=== PATIENT | male | born 1965 | race Caucasian/White ===

== ENCOUNTER 2016-11-14 20:40 | Inpatient (IN) | payer SELFPAY ==
[~2016-11-14] VITALS: Ht 172.7 cm; Wt 72.3 kg
[2016-11-14 20:40] VITALS: BP 149/76; PULSE 77; RESP 20; TEMP 97.1; O2SAT 97
--- NOTE | 2016-11-14 22:10 | NUR ---
Yaron brandt in ED - 11/14/16 at 2213 by [email or web address] Patient to bed 7 to [facility] for evaluation. Side rails up. Report given to LEAH Perales.
--- NOTE | 2016-11-14 22:37 | NUR ---
Patient to ER bed 5 to gown for evaluation. Side rails up. Report given to TASHA LYNN.
--- NOTE | 2016-11-14 22:45 | NUR ---
Pt brought in by friend in stable condition. Pt c/o epigastric pain x1 wk 03/15. +N/V. Pt stated he has had intermittent fever x1 wk. Pt stated he has been medicating w/ Nexium from a friend. Pt denies taking any pain medication at this time. -sob -chest pain. No acute distress noted at this time, will continue to monitor
[2016-11-14] MEDS ORDERED: MAG HYDROX/AL HYDROX/SIMETH 30 ML, BELLADONNA ALKALOIDS/PHENOBARB 10 ML, LIDOCAINE VISC... PO ONE ×3 (23:00)
--- NOTE | 2016-11-14 23:15 | NUR ---
ER at bedside examining patient.
[2016-11-14 23:26] LABS: BASOPHILS # (AUTO) 0.1 K/uL (0.0-0.2); BASOPHILS % (AUTO) 0.5 % (0.0-2.0); EOSINOPHILS # (AUTO) 0.1 K/uL (0.0-0.4); EOSINOPHILS % (AUTO) 0.5 % (0.0-4.0); HEMATOCRIT 49.8 % (36-54); HEMOGLOBIN 16.4 g/dL (14.0-18.0); LYMPHOCYTES # (AUTO) 2.7 K/uL (1.0-5.5); LYMPHOCYTES % (AUTO) 18.6 % (20.5-51.5); MEAN CORPUSCULAR HEMOGLOBIN 28 pg (27-31); MEAN CORPUSCULAR HGB CONC 33 % (32-36); MEAN CORPUSCULAR VOLUME 85 fL (79.0-98.0); MONOCYTES # (AUTO) 1.3 K/uL (0.0-1.0); MONOCYTES % (AUTO) 8.8 % (1.7-9.3); NEUTROPHILS # (AUTO) 10.5 K/uL (1.8-7.7); NEUTROPHILS % (AUTO) 71.6 % (40.0-70.0); PLATELET COUNT (AUTO) 387 K/uL (130-430); RED BLOOD CELL COUNT(AUTO) 5.84 MIL/uL (4.2-6.2); RED CELL DISTRIBUTION WIDTH 12.6 % (9.0-15.0); WHITE BLOOD COUNT (AUTO) 14.7 K/uL (4.8-10.8)
[2016-11-14] MEDS ORDERED: NACL 0.9% 1,000 ML IV ONE (23:30)
[2016-11-14] MEDS ORDERED: PANTOPRAZOLE SODIUM 40 MG/VIAL (PROTONIX) IVP ONE (23:30)
[2016-11-14] MEDS ORDERED: ONDANSETRON HCL 4 MG/2 ML VIAL IVP ONE (23:30)
[2016-11-14 23:31] LABS: BILIRUBIN,URINE NEGATIVE (NEGATIVE); CLARITY/URINE CLEAR (CLEAR); COLOR,URINE YELLOW (YELLOW); GLUCOSE,URINE NEGATIVE (NEGATIVE); KETONES,URINE NEGATIVE (NEGATIVE); LEUKOCYTE ESTERASE ,URINE NEGATIVE (NEGATIVE); NITRITE, URINE NEGATIVE (NEGATIVE); PH,URINE 6.5 (5.0-8.0); PROTEIN URINE NEGATIVE (NEGATIVE)
[2016-11-14 23:33] LABS: ALBUMIN 3.9 g/dL (3.4-4.8); CALCIUM 8.7 mg/dL (8.4-11.0); CREATININE 0.87 mg/dL (0.55-1.30); POTASSIUM 3.7 mmol/L (3.5-5.1); TOTAL BILIRUBIN 1.8 mg/dL (0.0-1.0); TOTAL PROTEIN, SERUM 7.8 g/dL (6.4-8.3)
[2016-11-14 23:40] LABS: BLOOD, URINE TRACE (NEGATIVE)
[2016-11-14 23:45] LABS: BACTERIA,URINE None Seen /HPF (None Seen); WBC,URINE 0-3 /HPF (0-3)
[2016-11-14 23:46] LABS: PROTHROMBIN TIME 10.7 SECS (9.5-12.5)
[2016-11-15] MEDS ORDERED: NACL 0.9% 1,000 ML IV ONE
[2016-11-15] MEDS ORDERED: MORPHINE SULFATE 10 MG/ML VIAL IVP ONE
[2016-11-15 00:42] LABS: BARBITURATE, URINE NEGATIVE (NEG <=200); BENZODIAZEPINE, URINE NEGATIVE (NEG <=150); CANNABINOID, URINE POSITIVE (NEG <=50); COCAINE, URINE NEGATIVE (NEG <=150); METHAMPHETAMINES SCREEN,URINE POSITIVE (NEG <=500); OPIATE, URINE POSITIVE (NEG <=100); PHENCYCLIDINE SCREEN,URINE NEGATIVE (NEG <=25); UR TRICYCLIC ANTIDEPRESSANTS NEGATIVE (NEG <=300); URINE AMPHETAMINE POSITIVE (NEG <=500); URINE METHADONE NEGATIVE (NEG <=200); URINE OXYCODONE SCREEN NEGATIVE (NEG <=100); URINE PROPOXYPHENE SCREEN NEGATIVE (NEG <=300)
[2016-11-15] MEDS: KCL 20 mEq in D5/0.45NS 1000mL 1,000 ML IV SCH ×3 (01:45→21:10)
[2016-11-15] MEDS ORDERED: HYDROmorphone 1 MG INJ. 1 MG/ML AMPUL IVP PRN (01:45)
[2016-11-15] MEDS ORDERED: ONDANSETRON HCL 4 MG/2 ML VIAL IVP PRN (01:45)
--- NOTE | 2016-11-15 01:50 | NUR ---
Patient will be admitted to [facility]. Admitted to med surg unit. Will go to room 128-C. Belongings list completed. Summary report printed. Report given to LEAH Moncada.
--- NOTE | 2016-11-15 01:50 | NUR ---
9Admission Note Received patient from ER with diagnosis of acute pancreatitis. Initial Plan of Care discussed-patient verbalized understanding. Family at bedside. Oriented to room, call light, pain management and safety.
--- NOTE | 2016-11-15 02:00 | NUR ---
initial nursing notes: Patient is awake. Patient's saline lock intact. Patient denies of having pain at this time.
[2016-11-15 03:05] VITALS: BP 125/72; PULSE 62; RESP 18; TEMP 98.3; O2SAT 99
--- NOTE | 2016-11-15 03:21 | NUR ---
Consultation paged Reason for consultation: Acute Pancreatitis Was consult called: Yes Person who was notified: Karolina Consulting Physician; Dr Parikh; Dr Cope is on-call for Dr Parikh Mail Censor Specialty: GI Mail Censor
--- NOTE | 2016-11-15 04:00 | NUR ---
nursing rounds: Patient is asleep. Patient has no shortness of breath.
--- NOTE | 2016-11-15 06:00 | NUR ---
nursing rounds: Patient calmly resting in bed. Call light within patient's reach.
[2016-11-15 06:59] LABS: CALCIUM 8.2 mg/dL (8.4-11.0); CREATININE 0.94 mg/dL (0.55-1.30); POTASSIUM 4.7 mmol/L (3.5-5.1)
[2016-11-15 07:04] LABS: ALBUMIN 3.4 g/dL (3.4-4.8); TOTAL BILIRUBIN 1.4 mg/dL (0.0-1.0); TOTAL PROTEIN, SERUM 6.4 g/dL (6.4-8.3)
[2016-11-15 07:10] LABS: BASOPHILS # (AUTO) 0.1 K/uL (0.0-0.2); BASOPHILS % (AUTO) 0.8 % (0.0-2.0); EOSINOPHILS # (AUTO) 0.1 K/uL (0.0-0.4); HEMATOCRIT 43.5 % (36-54); HEMOGLOBIN 14.3 g/dL (14.0-18.0); LYMPHOCYTES # (AUTO) 2.4 K/uL (1.0-5.5); LYMPHOCYTES % (AUTO) 23.2 % (20.5-51.5); MEAN CORPUSCULAR HEMOGLOBIN 28 pg (27-31); MEAN CORPUSCULAR HGB CONC 33 % (32-36); MEAN CORPUSCULAR VOLUME 87 fL (79.0-98.0); MONOCYTES % (AUTO) 10.1 % (1.7-9.3); NEUTROPHILS # (AUTO) 6.5 K/uL (1.8-7.7); NEUTROPHILS % (AUTO) 64.9 % (40.0-70.0); PLATELET COUNT (AUTO) 335 K/uL (130-430); RED BLOOD CELL COUNT(AUTO) 5.03 MIL/uL (4.2-6.2); RED CELL DISTRIBUTION WIDTH 13.3 % (9.0-15.0)
[2016-11-15 07:16] LABS: WHITE BLOOD COUNT (AUTO) 10.1 K/uL (4.8-10.8)
[2016-11-15 08:00] VITALS: BP 133/74; PULSE 89; RESP 18; TEMP 98; O2SAT 96
--- NOTE | 2016-11-15 08:00 | NUR ---
OPENING NOTE PATIENT IS AWAKE, ALERT ORIENTED. DENIES ANY PAIN OR NAUSEA AT THIS TIME. PT STATES IN THE PAST HE HAS BEEN TOLD HE MAY HAVE GALLSTONES.
--- NOTE | 2016-11-15 08:05 | NUR ---
closing nursing notes: Patient is awake, alert and oriented X 4. Patient is in no acute respiratory distress. No episodes of fall and no injuries throughout the night cleaner. Provided nursing report to incoming morning shift nurse, LEAH Dawkins, at patient's bedside.
[2016-11-15] MEDS: PANTOPRAZOLE SODIUM 40 MG/VIAL (PROTONIX) IVP SCH (08:51)
--- NOTE | 2016-11-15 10:30 | NUR ---
PATIENT TOLERATED BREAKFAST WELL. DENIES ANY PAIN OR NAUSEA
[2016-11-15 12:27] VITALS: BP 103/69; PULSE 63; RESP 16; TEMP 96.8; O2SAT 97
--- NOTE | 2016-11-15 12:30 | NUR ---
DR SAUER WAS IN TO SEE PATIENT, ORDERS FOR CONSENT FOR EGD GIVEN
--- NOTE | 2016-11-15 15:34 | NUR ---
PATIENT TOLERATED LUNCH WELL, IS RESTING CALMLY. DENIES ANY PAIN AT THIS TIME.
[2016-11-15 16:14] VITALS: BP 96/52; PULSE 54; RESP 16; TEMP 97.1; O2SAT 96
[2016-11-15 20:00] VITALS: BP 104/63; PULSE 69; RESP 20; TEMP 98.2; O2SAT 99
--- NOTE | 2016-11-15 20:00 | NUR ---
PM assessment Pt awake alert oriented x 4. clear speech. Breathing symmetrically, no labored breathing. IV on the left AC 20, infusing D5 1/2 NS at 125ml/hr, patent. Pt abdominal pain level at 3/10 at the time. pain management verbally educated. pt stated able to tolerate at the time. Educated to use call light for assistance. Safety precaution in place. Bed in the lowest positioned, locked. call light in reach. will continue to monitor
[2016-11-16 01:03] VITALS: BP 110/49; PULSE 63; RESP 16; TEMP 98.5; O2SAT 96
[2016-11-16] MEDS: KCL 20 mEq in D5/0.45NS 1000mL 1,000 ML IV SCH ×3 (05:45→21:13)
--- NOTE | 2016-11-16 06:35 | NUR ---
Closing note Pt awake alert. Pt aware of plan of care for this morning. consent in chart. Hourly rounds done throughout the shift. Comfort needs met throughout the shift. call light within reach. will endorse AM shift nurse via SBAR method to continue care. educated to use call light for assistance. verbalized understanding. call light in reach.
--- NOTE | 2016-11-16 07:30 | NUR ---
OPENING NOTE BEDSIDE ABDOMINAL ULTRASOUND IN PROGRESS. PATIENT IS VERY DROWSY BUT IN NO DISTRESS. DENIES PAIN.
[2016-11-16 08:00] VITALS: BP 121/78; PULSE 60; RESP 16; TEMP 98.8; O2SAT 99
--- NOTE | 2016-11-16 09:30 | NUR ---
PATIENT IS SLEEPING. ENTERED ROOM TO GIVE MEDICATION AND PATIENT WAS NOT AWAKEN TO VOICE OR TOUCH, EASILY. INFORMED PATIENT OF MEDICATION ADMINISTRATION AND HE VERBALIZED UNDERSTANDING.
[2016-11-16] MEDS: PANTOPRAZOLE SODIUM 40 MG/VIAL (PROTONIX) IVP SCH (09:45)
[2016-11-16] MEDS ORDERED: fentaNYL CITRATE/PF 100 MCG/2 ML AMP ONE (11:33)
[2016-11-16] MEDS ORDERED: MIDAZOLAM HCL 5 MG/5 ML VIAL ONE (11:33)
[2016-11-16] MEDS ORDERED: SIMETHICONE 40 MG/0.6 ML ML ONE (11:34)
--- NOTE | 2016-11-16 11:38 | NUR ---
PATIENT TAKEN TO GI LAB VIA GURNEY.
[2016-11-16] MEDS ORDERED: DIPHENHYDRAMINE INJ 50 MG/ML VIAL ONE (11:56)
[2016-11-16 12:08] VITALS: BP 103/65; PULSE 61; RESP 16; TEMP 98.2; O2SAT 96
--- NOTE | 2016-11-16 13:20 | NUR ---
PATIENT RETURNED FROM GI LAB, DROWSY.
[2016-11-16 14:23] LABS: ALBUMIN 3.1 g/dL (3.4-4.8); BILIRUBIN,DIRECT 0.3 mg/dL (0.0-0.3); TOTAL BILIRUBIN 1.2 mg/dL (0.0-1.0); TOTAL PROTEIN, SERUM 5.9 g/dL (6.4-8.3)
--- NOTE | 2016-11-16 15:30 | NUR ---
DR PADILLA IN TO SEE PATIENT. DIET IS NOW ADVANCE TOLERATED. PATIENT IS STILL DROWSY
[2016-11-16 17:36] VITALS: BP 118/67; PULSE 59; RESP 16; TEMP 99; O2SAT 99
--- NOTE | 2016-11-16 19:50 | NUR ---
initial nursing notes: Patient is awake. Patient has IV fluid infusing on the left AC IV access. Patient denies of having pain.
[2016-11-16 20:13] VITALS: BP 114/59; PULSE 75; RESP 15; TEMP 98.6; O2SAT 95
[2016-11-16] MEDS: PANTOPRAZOLE SODIUM 40 MG TAB PO SCH (21:19)
--- NOTE | 2016-11-16 21:50 | NUR ---
initial nursing notes: Patient is awake. Patient watching television.
--- NOTE | 2016-11-16 23:50 | NUR ---
nursing rounds: Patient calmly resting in bed. Call light within patient's reach.
[2016-11-17] VITALS: BP 113/61; PULSE 69; RESP 16; TEMP 98.8; O2SAT 96
--- NOTE | 2016-11-17 01:50 | NUR ---
nursing rounds: Patient is asleep. Patient has no shortness of breath.
--- NOTE | 2016-11-17 03:50 | NUR ---
nursing rounds: Patient calmly resting in bed. Patient has no respiratory distress.
[2016-11-17 04:00] VITALS: BP 109/63; PULSE 70; RESP 15; TEMP 98.2; O2SAT 95
--- NOTE | 2016-11-17 05:44 | NUR ---
nursing rounds: Patient asleep in bed.
[2016-11-17 06:18] LABS: BASOPHILS # (AUTO) 0.1 K/uL (0.0-0.2); BASOPHILS % (AUTO) 0.9 % (0.0-2.0); EOSINOPHILS # (AUTO) 0.5 K/uL (0.0-0.4); EOSINOPHILS % (AUTO) 4.8 % (0.0-4.0); HEMATOCRIT 39.9 % (36-54); HEMOGLOBIN 13.1 g/dL (14.0-18.0); LYMPHOCYTES # (AUTO) 2.3 K/uL (1.0-5.5); LYMPHOCYTES % (AUTO) 23.4 % (20.5-51.5); MEAN CORPUSCULAR HEMOGLOBIN 28 pg (27-31); MEAN CORPUSCULAR HGB CONC 33 % (32-36); MEAN CORPUSCULAR VOLUME 87 fL (79.0-98.0); MONOCYTES # (AUTO) 0.9 K/uL (0.0-1.0); MONOCYTES % (AUTO) 9.3 % (1.7-9.3); NEUTROPHILS # (AUTO) 5.9 K/uL (1.8-7.7); NEUTROPHILS % (AUTO) 61.6 % (40.0-70.0); PLATELET COUNT (AUTO) 324 K/uL (130-430); RED BLOOD CELL COUNT(AUTO) 4.61 MIL/uL (4.2-6.2); RED CELL DISTRIBUTION WIDTH 13.2 % (9.0-15.0); WHITE BLOOD COUNT (AUTO) 9.7 K/uL (4.8-10.8)
[2016-11-17 06:35] LABS: CREATININE 0.99 mg/dL (0.55-1.30); POTASSIUM 3.6 mmol/L (3.5-5.1)
[2016-11-17] MEDS: KCL 20 mEq in D5/0.45NS 1000mL 1,000 ML IV SCH (07:15)
--- NOTE | 2016-11-17 07:39 | NUR ---
closing nursing notes: Patient is awake, alert and oriented X 4. Patient is in no acute respiratory distress. No episodes of fall and no injuries throughout the night monitor. Provided nursing report to incoming morning shift nurse, LEAH Dawkins, at patient's bedside.
--- NOTE | 2016-11-17 08:00 | NUR ---
OPENING NOTE PATIENT IS AWAKE, ALERT AND ORIENTED. DROWSY. DENIES ANY PAIN OR NAUSEA AT THIS TIME. FULL LIQUID BREAKFAST TRAY GIVEN TO PATIENT. WILL GIVE HIM A SNACK TO ADVANCE DIET THIS AM AND HOPEFULLY DISCHARGE.
[2016-11-17 08:23] VITALS: BP 109/69; PULSE 72; RESP 14; TEMP 98; O2SAT 97
--- NOTE | 2016-11-17 09:48 | NUR ---
PATIENT MEDICATED PER ORDERS. AWAITING DC /NEW ORDERS FROM DR PADILLA
[2016-11-17] MEDS: PANTOPRAZOLE SODIUM 40 MG TAB PO SCH (09:52)
[2016-11-17 11:19] VITALS: BP 135/66; PULSE 73; RESP 20; TEMP 97.3; O2SAT 98
--- NOTE | 2016-11-17 11:28 | NUR ---
PATIENT IS RESTING. DISCONNECTED FROM IV TO USE RESTROOM/WASH UP
--- NOTE | 2016-11-17 13:23 | NUR ---
DR PADILLA IN TO SEE PATIENT. OK TO DC HOME PER .
--- NOTE | 2016-11-17 13:42 | NUR ---
iv dc'd pressure dressing applied. patient given one prescription, dc instructions and follow up care contact information. verbalized understanding of all transitional care information. taken to private auto via wheelchair. all belongings accounted for and sent home with the patient.
[2016-11-17 13:45] VITALS: BP 122/72; PULSE 74; RESP 16; TEMP 98; O2SAT 98
--- NOTE | 2016-11-19 13:16 | NUR ---
Dr. Wagner requested f/u information re: pathology report and xray cd, H&P, consult, GI operative report, labs be printed and delivered to his office so that he can call pt himself regarding path report-and [facility] information--I am f/u with this request today to give packet to Dr. Wagner-- RN
== END 2016-11-17 14:00 | disposition home or self-care (01) | DRG 383 ==
LOC: SED 20:40 → SMU 11-15 01:33
PROVIDERS: ADMIT Family Medicine; ATTEND Family Medicine
PROC: 0DB68ZX Excision of Stomach, Via Natural or Artificial Opening Endoscopic, Diagnostic (ICD-10-PCS; principal; 2016-11-16 13:00)
DX: K27.3 Acute peptic ulcer, site unspecified, without hemorrhage or perforation (principal); K85.90 Acute pancreatitis without necrosis or infection, unspecified; F19.20 Other psychoactive substance dependence, uncomplicated; K21.9 Gastro-esophageal reflux disease without esophagitis; K40.90 Unilateral inguinal hernia, without obstruction or gangrene, not specified as recurrent
CPT/HCPCS: 36415; 43239; 76700-TC; 80048; 80053; 80076; 80307; 81000-TC; 82150-TC; 83690-TC; 85025; 85610-TC; 87081; 88305; 88312; 88313; 93005; 96361; 96374; 96375; 99285; C9113; J1200; J2001; J2250; J2270; J2405; J3010; J7030

== ENCOUNTER 2018-01-01 23:49 | Emergency (ER) | payer MEDICAID ==
[~2018-01-01] VITALS: Ht 172.7 cm; Wt 72.6 kg
[~2018-01-01 23:49] MED LIST: ONDA4TAB5 PO
[2018-01-01 23:53] VITALS: BP_SYST 145
[2018-01-02] MEDS ORDERED: NACL 0.9% 1,000 ML IV ONE (00:03)
[2018-01-02] MEDS ORDERED: ONDANSETRON HCL 4 MG/2 ML VIAL IVP ONE (00:15)
[2018-01-02] MEDS ORDERED: MORPHINE 4 MG/ML INJ. SYRINGE IVP ONE (00:15)
[2018-01-02 00:29] LABS: BASOPHILS # (AUTO) 0.1 K/uL (0.0-0.2); BASOPHILS % (AUTO) 0.8 % (0.0-2.0); EOSINOPHILS # (AUTO) 0.1 K/uL (0.0-0.4); EOSINOPHILS % (AUTO) 0.7 % (0.0-4.0); HEMATOCRIT 32.8 % (36-54); LYMPHOCYTES # (AUTO) 2.3 K/uL (1.0-5.5); LYMPHOCYTES % (AUTO) 20.7 % (20.5-51.5); MEAN CORPUSCULAR HEMOGLOBIN 31 pg (27-31); MEAN CORPUSCULAR HGB CONC 33 % (32-36); MEAN CORPUSCULAR VOLUME 92 fL (79.0-98.0); MONOCYTES # (AUTO) 0.7 K/uL (0.0-1.0); MONOCYTES % (AUTO) 6.2 % (1.7-9.3); NEUTROPHILS # (AUTO) 8.1 K/uL (1.8-7.7); NEUTROPHILS % (AUTO) 71.6 % (40.0-70.0); PLATELET COUNT (AUTO) 596 K/uL (130-430); RED BLOOD CELL COUNT(AUTO) 3.58 MIL/uL (4.2-6.2); RED CELL DISTRIBUTION WIDTH 13.7 % (9.0-15.0); WHITE BLOOD COUNT (AUTO) 11.3 K/uL (4.8-10.8)
[2018-01-02] MEDS ORDERED: PROC10TA PO (00:35)
[2018-01-02 00:54] LABS: CREATININE 0.69 mg/dL (0.55-1.30); POTASSIUM 3.8 mmol/L (3.5-5.1)
[2018-01-02 00:59] LABS: ALBUMIN 3.7 g/dL (3.4-4.8); TOTAL BILIRUBIN 0.7 mg/dL (0.0-1.0)
[2018-01-02 02:04] VITALS: BP_SYST 135
== END 2018-01-02 02:04 | disposition home or self-care (01) ==
LOC: SED 23:49
DX: R10.13 Epigastric pain (principal); K21.9 Gastro-esophageal reflux disease without esophagitis; Z85.028 Personal history of other malignant neoplasm of stomach
CPT/HCPCS: 36415; 74176; 80053; 83605; 83690; 85025; 96361; 96374; 96375; 99285; J2270; J2405; J7030

== ENCOUNTER 2019-08-23 18:58 | Inpatient (IN) | payer MEDICAID ==
[~2019-08-23] VITALS: Ht 172.7 cm; Wt 65.8 kg
[~2019-08-23 18:58] MED LIST changes: +PROC10TA13 PO
[2019-08-23 19:33] VITALS: BP_SYST 126
[2019-08-23] MEDS ORDERED: NACL 0.9% 1,000 ML IV ONE (20:28)
[2019-08-23] MEDS ORDERED: KETOROLAC TROMETHAMINE 30 MG VIAL IVP ONE (20:30)
[2019-08-23] MEDS ORDERED: ONDANSETRON HCL 4 MG/2 ML VIAL IVP ONE (20:30)
[2019-08-23 21:12] LABS: CALCIUM 8.7 mg/dL (8.4-11.0); CREATININE 0.82 mg/dL (0.55-1.30); POTASSIUM 3.5 mmol/L (3.5-5.1)
[2019-08-23 21:17] LABS: ALBUMIN 4.1 g/dL (3.4-4.8); TOTAL BILIRUBIN 1.7 mg/dL (0.0-1.0)
[2019-08-23 21:19] LABS: BASOPHILS # (AUTO) 0.1 K/uL (0.0-0.2); BASOPHILS % (AUTO) 0.9 % (0.0-2.0); EOSINOPHILS % (AUTO) 0.2 % (0.0-4.0); HEMATOCRIT 48.9 % (36-54); HEMOGLOBIN 16.2 g/dL (14.0-18.0); LYMPHOCYTES # (AUTO) 1.7 K/uL (1.0-5.5); LYMPHOCYTES % (AUTO) 12.3 % (20.5-51.5); MEAN CORPUSCULAR HEMOGLOBIN 28 pg (27-31); MEAN CORPUSCULAR HGB CONC 33 % (32-36); MEAN CORPUSCULAR VOLUME 84 fL (79.0-98.0); MONOCYTES # (AUTO) 1.1 K/uL (0.0-1.0); MONOCYTES % (AUTO) 7.9 % (1.7-9.3); NEUTROPHILS # (AUTO) 10.8 K/uL (1.8-7.7); NEUTROPHILS % (AUTO) 78.7 % (40.0-70.0); PLATELET COUNT (AUTO) 419 K/uL (130-430); RED BLOOD CELL COUNT(AUTO) 5.82 MIL/uL (4.2-6.2); RED CELL DISTRIBUTION WIDTH 15.3 % (9.0-15.0); WHITE BLOOD COUNT (AUTO) 13.7 K/uL (4.8-10.8)
[2019-08-23] MEDS ORDERED: MORPHINE 4 MG/ML INJ. SYRINGE IVP ONE (21:30)
[2019-08-23] MEDS ORDERED: ONDANSETRON HCL 4 MG/2 ML VIAL IVP PRN (22:15)
[2019-08-23 22:59] VITALS: BP_SYST 113
[2019-08-23] MEDS: NACL 0.9% 1,000 ML IV SCH (23:38)
[2019-08-24] MEDS: MORPHINE 2 MG/ML INJ. SYRINGE IVP PRN ×2 (04:02→08:32)
[2019-08-24] MEDS ORDERED: FLU VACC QS2019-20 36MOS UP/PF 60 MCG/0.5 ML SYRINGE I.M. PRN (06:00)
[2019-08-24 08:00] VITALS: BP_SYST 140
[2019-08-24] MEDS: NACL 0.9% 1,000 ML IV SCH ×2 (08:39→17:46)
[2019-08-24 11:24] VITALS: BP_SYST 133
[2019-08-24 15:47] VITALS: BP_SYST 133
[2019-08-24 20:00] VITALS: BP_SYST 135
[2019-08-25 00:30] VITALS: BP_SYST 129
[2019-08-25] MEDS: MORPHINE 2 MG/ML INJ. SYRINGE IVP PRN ×2 (01:16→09:35)
[2019-08-25] MEDS: NACL 0.9% 1,000 ML IV SCH ×3 (04:36→21:02)
[2019-08-25 07:19] LABS: BASOPHILS # (AUTO) 0.1 K/uL (0.0-0.2); BASOPHILS % (AUTO) 1.3 % (0.0-2.0); EOSINOPHILS # (AUTO) 0.1 K/uL (0.0-0.4); EOSINOPHILS % (AUTO) 1.3 % (0.0-4.0); HEMATOCRIT 43.9 % (36-54); HEMOGLOBIN 14.6 g/dL (14.0-18.0); LYMPHOCYTES # (AUTO) 1.8 K/uL (1.0-5.5); LYMPHOCYTES % (AUTO) 16.1 % (20.5-51.5); MEAN CORPUSCULAR HEMOGLOBIN 28 pg (27-31); MEAN CORPUSCULAR HGB CONC 33 % (32-36); MEAN CORPUSCULAR VOLUME 86 fL (79.0-98.0); MONOCYTES # (AUTO) 0.9 K/uL (0.0-1.0); NEUTROPHILS % (AUTO) 73.3 % (40.0-70.0); PLATELET COUNT (AUTO) 338 K/uL (130-430); RED BLOOD CELL COUNT(AUTO) 5.13 MIL/uL (4.2-6.2); RED CELL DISTRIBUTION WIDTH 15.4 % (9.0-15.0); WHITE BLOOD COUNT (AUTO) 10.9 K/uL (4.8-10.8)
[2019-08-25 07:58] LABS: ALBUMIN 3.5 g/dL (3.4-4.8); CALCIUM 8.3 mg/dL (8.4-11.0); CREATININE 0.62 mg/dL (0.55-1.30); POTASSIUM 4.1 mmol/L (3.5-5.1)
[2019-08-25 08:20] VITALS: BP_SYST 144
[2019-08-25] MEDS ORDERED: ENALAPRILAT DIHYDRATE 1.25 MG/ML VIAL IVP PRN (11:00)
[2019-08-25 11:21] VITALS: BP_SYST 185
[2019-08-25 13:09] VITALS: BP_SYST 141
[2019-08-25 16:10] VITALS: BP_SYST 132
[2019-08-25 20:00] VITALS: BP_SYST 154
[2019-08-26 06:44] LABS: ALBUMIN 3.7 g/dL (3.4-4.8); CALCIUM 8.3 mg/dL (8.4-11.0); CREATININE 0.87 mg/dL (0.55-1.30); POTASSIUM 4.5 mmol/L (3.5-5.1); TOTAL BILIRUBIN 1.2 mg/dL (0.0-1.0)
[2019-08-26 08:00] VITALS: BP_SYST 116
[2019-08-26 12:00] VITALS: BP_SYST 120
[2019-08-26] MEDS: MORPHINE 2 MG/ML INJ. SYRINGE IVP PRN (15:18)
[2019-08-26 21:00] VITALS: BP_SYST 147
[2019-08-27] MEDS: MORPHINE 2 MG/ML INJ. SYRINGE IVP PRN ×3 (00:16→09:14)
[2019-08-27 02:23] VITALS: BP_SYST 151
[2019-08-27] MEDS: NACL 0.9% 1,000 ML IV SCH (05:01)
[2019-08-27 07:36] LABS: BASOPHILS # (AUTO) 0.1 K/uL (0.0-0.2); BASOPHILS % (AUTO) 1.2 % (0.0-2.0); EOSINOPHILS # (AUTO) 0.2 K/uL (0.0-0.4); EOSINOPHILS % (AUTO) 2.5 % (0.0-4.0); HEMATOCRIT 45.1 % (36-54); HEMOGLOBIN 15.2 g/dL (14.0-18.0); LYMPHOCYTES # (AUTO) 2.1 K/uL (1.0-5.5); LYMPHOCYTES % (AUTO) 21.5 % (20.5-51.5); MEAN CORPUSCULAR HEMOGLOBIN 29 pg (27-31); MEAN CORPUSCULAR HGB CONC 34 % (32-36); MEAN CORPUSCULAR VOLUME 85 fL (79.0-98.0); MONOCYTES # (AUTO) 0.9 K/uL (0.0-1.0); MONOCYTES % (AUTO) 8.9 % (1.7-9.3); NEUTROPHILS # (AUTO) 6.5 K/uL (1.8-7.7); NEUTROPHILS % (AUTO) 65.9 % (40.0-70.0); PLATELET COUNT (AUTO) 361 K/uL (130-430); RED CELL DISTRIBUTION WIDTH 15.3 % (9.0-15.0); WHITE BLOOD COUNT (AUTO) 9.9 K/uL (4.8-10.8)
[2019-08-27 08:00] VITALS: BP_SYST 148
[2019-08-27 08:00] LABS: ALBUMIN 3.5 g/dL (3.4-4.8); CALCIUM 7.6 mg/dL (8.4-11.0); CREATININE 0.77 mg/dL (0.55-1.30); POTASSIUM 4.5 mmol/L (3.5-5.1); TOTAL BILIRUBIN 0.9 mg/dL (0.0-1.0)
[2019-08-27 12:30] VITALS: BP_SYST 162
[2019-08-27 16:20] VITALS: BP_SYST 131
[2019-08-27 20:00] VITALS: BP_SYST 135
[2019-08-28 00:21] VITALS: BP_SYST 146
[2019-08-28] MEDS: NACL 0.9% 1,000 ML IV SCH (06:31)
[2019-08-28 07:40] LABS: ALBUMIN 3.6 g/dL (3.4-4.8); CALCIUM 8.6 mg/dL (8.4-11.0); CREATININE 0.8 mg/dL (0.55-1.30); POTASSIUM 3.5 mmol/L (3.5-5.1); TOTAL BILIRUBIN 1.5 mg/dL (0.0-1.0)
[2019-08-28 07:44] LABS: BASOPHILS # (AUTO) 0.2 K/uL (0.0-0.2); EOSINOPHILS # (AUTO) 0.2 K/uL (0.0-0.4); HEMATOCRIT 48.3 % (36-54); HEMOGLOBIN 16.1 g/dL (14.0-18.0); LYMPHOCYTES # (AUTO) 1.9 K/uL (1.0-5.5); LYMPHOCYTES % (AUTO) 20.6 % (20.5-51.5); MEAN CORPUSCULAR HEMOGLOBIN 29 pg (27-31); MEAN CORPUSCULAR HGB CONC 33 % (32-36); MEAN CORPUSCULAR VOLUME 86 fL (79.0-98.0); MONOCYTES # (AUTO) 0.6 K/uL (0.0-1.0); MONOCYTES % (AUTO) 6.9 % (1.7-9.3); NEUTROPHILS # (AUTO) 6.2 K/uL (1.8-7.7); NEUTROPHILS % (AUTO) 68.5 % (40.0-70.0); PLATELET COUNT (AUTO) 363 K/uL (130-430); RED BLOOD CELL COUNT(AUTO) 5.65 MIL/uL (4.2-6.2); RED CELL DISTRIBUTION WIDTH 15.2 % (9.0-15.0); WHITE BLOOD COUNT (AUTO) 9.1 K/uL (4.8-10.8)
[2019-08-28 07:50] VITALS: BP_SYST 103
[2019-08-28 11:21] VITALS: BP_SYST 115
[2019-08-28 12:23] VITALS: BP_SYST 115
== END 2019-08-28 12:45 | disposition home or self-care (01) | DRG 282 ==
LOC: SED 18:58 → SMU 22:15
PROVIDERS: ADMIT Internal Medicine Hospice and Palliative Medicine; ATTEND Internal Medicine Hospice and Palliative Medicine
DX: K85.90 Acute pancreatitis without necrosis or infection, unspecified (principal); C16.9 Malignant neoplasm of stomach, unspecified; D72.829 Elevated white blood cell count, unspecified; Z79.899 Other long term (current) drug therapy
CPT/HCPCS: 36415; 71045; 76700-TC; 80053; 83690-TC; 85025; 96361; 96374; 96375; 99285; J1885; J2270; J2405; J7030

== ENCOUNTER 2020-04-15 09:56 | Emergency (ER) | payer MEDICAID ==
[~2020-04-15] VITALS: Ht 172.7 cm; Wt 68.9 kg
[2020-04-15 09:56] VITALS: BP_SYST 162
[2020-04-15] MEDS ORDERED: KETOROLAC TROMETHAMINE 30 MG VIAL IVP ONE (10:30)
[2020-04-15] MEDS ORDERED: ONDANSETRON HCL 4 MG/2 ML VIAL IVP ONE (10:30)
[2020-04-15] MEDS ORDERED: MAG HYDROX/AL HYDROX/SIMETH 30 ML, DICYCLOMINE HCL 20 MG, LIDOCAINE VISCOUS 2% 15ML (PO... PO ONE ×3 (10:30)
[2020-04-15] MEDS ORDERED: NACL 0.9% 1,000 ML IV ONE (10:30)
[2020-04-15 10:35] LABS: BASOPHILS # (AUTO) 0.2 K/uL (0.0-0.2); BASOPHILS % (AUTO) 1.5 % (0.0-2.0); EOSINOPHILS # (AUTO) 0.1 K/uL (0.0-0.4); EOSINOPHILS % (AUTO) 0.6 % (0.0-4.0); HEMATOCRIT 35.3 % (36-54); HEMOGLOBIN 10.8 g/dL (14.0-18.0); LYMPHOCYTES # (AUTO) 1.5 K/uL (1.0-5.5); LYMPHOCYTES % (AUTO) 13.7 % (20.5-51.5); MEAN CORPUSCULAR HEMOGLOBIN 18 pg (27-31); MEAN CORPUSCULAR HGB CONC 31 % (32-36); MEAN CORPUSCULAR VOLUME 59 fL (79.0-98.0); MONOCYTES # (AUTO) 0.9 K/uL (0.0-1.0); MONOCYTES % (AUTO) 8.1 % (1.7-9.3); NEUTROPHILS # (AUTO) 8.1 K/uL (1.8-7.7); NEUTROPHILS % (AUTO) 76.1 % (40.0-70.0); PLATELET COUNT (AUTO) 453 K/uL (130-430); RED BLOOD CELL COUNT(AUTO) 6.02 MIL/uL (4.2-6.2); RED CELL DISTRIBUTION WIDTH 22.6 % (9.0-15.0); WHITE BLOOD COUNT (AUTO) 10.7 K/uL (4.8-10.8)
[2020-04-15 10:50] LABS: CALCIUM 9.4 mg/dL (8.4-11.0); CREATININE 0.98 mg/dL (0.55-1.30); POTASSIUM 3.4 mmol/L (3.5-5.1)
[2020-04-15 10:55] LABS: TOTAL BILIRUBIN 1.8 mg/dL (0.0-1.0)
[2020-04-15 11:55] VITALS: BP_SYST 153
== END 2020-04-15 11:55 | disposition home or self-care (01) ==
LOC: SED 09:56
DX: R10.13 Epigastric pain (principal); R11.2 Nausea with vomiting, unspecified; K21.9 Gastro-esophageal reflux disease without esophagitis
CPT/HCPCS: 36415; 80053; 83690; 85025; 96361; 96374; 96375; 99284; J1885; J2001; J2405; J7030

== ENCOUNTER 2021-02-23 11:03 | Emergency (ER) | payer MEDICAID ==
[~2021-02-23] VITALS: Ht 170.2 cm; Wt 70.3 kg
[~2021-02-23 11:03] MED LIST changes: +CEL20 PO; +PANT40TA45 PO
[2021-02-23 11:12] VITALS: BP_SYST 133
--- NOTE | 2021-02-23 11:50 | NUR ---
Patient triaged and placed in waiting room. VSS and patient appears in no acute distress at this time. Accompanied by self , awaiting available bed, and MD notified of need for MSE.
--- NOTE | 2021-02-23 11:50 | NUR ---
Pt came to ER in need of STI test. Pt believes he may have been exposed, is not experiencing symptoms at this time. VSS, waiting in triage area at this time.
--- NOTE | 2021-02-23 12:15 | NUR ---
PETER Alex at bedside examining patient.
--- NOTE | 2021-02-23 13:30 | NUR ---
Pt in triage room in chair stable at this time.
--- NOTE | 2021-02-23 13:35 | NUR ---
Note undone in EDM - 02/23/21 at 1555 by [email or web address] Patient given written and verbal discharge instructions and verbalizes understanding. ER discussed with patient the results and treatment provided. Patient in stable condition. ID arm band removed. No Rx given. Patient educated on pain management and to follow up with PMD. Pain Scale 0/10. Opportunity for questions provided and answered. Medication side effect fact sheet provided.
[2021-02-23] MEDS ORDERED: cefTRIAXone 0.75 GM in LIDOCAINE 1%, 20 ML MDV 2.1 ML IM ONE (14:45)
[2021-02-23] MEDS ORDERED: AZITHROMYCIN 250 MG TABLET PO ONE (14:45)
--- NOTE | 2021-02-23 15:35 | NUR ---
Patient given written and verbal discharge instructions and verbalizes understanding. ER MD discussed with patient the results and treatment provided. Patient in stable condition. ID arm band removed. No Rx given. Patient educated on pain management and to follow up with PMD. Pain Scale 0/10. Opportunity for questions provided and answered. Medication side effect fact sheet provided.
[2021-02-23 15:44] VITALS: BP_SYST 133
[2021-02-25 01:06] LABS: CHLAMYDIA TRACHOMATIS NAA Negative (Negative); NEISSERIA GONORRHOEAE NAA Negative (Negative)
== END 2021-02-23 15:35 | disposition home or self-care (01) ==
LOC: SED 11:03
DX: Z20.2 Contact with and (suspected) exposure to infections with a predominantly sexual mode of transmission (principal); K21.9 Gastro-esophageal reflux disease without esophagitis; Z79.899 Other long term (current) drug therapy
CPT/HCPCS: 87491; 87591; 96372; 99283; J0696; J2001; Q0144

== ENCOUNTER 2021-07-14 01:43 | Emergency (ER) | payer MEDICAID ==
[~2021-07-14] VITALS: Ht 175.3 cm; Wt 70.8 kg
[2021-07-14 02:10] VITALS: BP_SYST 155
--- NOTE | 2021-07-14 02:10 | NUR ---
Yaron brandt in ED - 07/14/21 at 0238 by SDEDGS PETER Fletcher at bedside examining patient.
--- NOTE | 2021-07-14 02:30 | NUR ---
PT ARRIVED TO ER FOR A HIV/STD TEST. PT HAS A POSSIBLE EXPOSURE AND WNATS TO MAKE SURE HE IS OKAY. A&OX4.
--- NOTE | 2021-07-14 02:35 | NUR ---
ER at bedside examining patient.
[2021-07-14] MEDS ORDERED: BICT1TAB PO (03:35)
--- NOTE | 2021-07-14 03:37 | NUR ---
LAB AT BEDSIDE
[2021-07-14] MEDS ORDERED: MELA5TAB12 PO (03:44)
[2021-07-14 04:05] VITALS: BP_SYST 134
--- NOTE | 2021-07-14 04:06 | NUR ---
Patient given written and verbal discharge instructions and verbalizes understanding. ER MD discussed with patient the results and treatment provided. Patient in stable condition. ID arm band removed. Rx of BIKTARVY given. Patient educated on pain management and to follow up with PMD. Pain Scale 0/10. Opportunity for questions provided and answered. Medication side effect fact sheet provided.
== END 2021-07-14 04:06 | disposition home or self-care (01) ==
LOC: SED 01:43
DX: Z20.2 Contact with and (suspected) exposure to infections with a predominantly sexual mode of transmission (principal); K21.9 Gastro-esophageal reflux disease without esophagitis; Z79.899 Other long term (current) drug therapy
CPT/HCPCS: 36415; 86592; 99283